=== PATIENT | male | born 1970 | race Caucasian/White ===

== ENCOUNTER → 2019-09-19 09:47 | Outpatient (CLI) | payer BC, SELFPAY ==
[2019-09-19 10:32] LABS: Cholesterol 149 mg/dL (140-199); Glucose 96 mg/dL (70-100); HDL Cholesterol 67 mg/dL (40-60); LDL Cholesterol Calculated 74 mg/dL (<100); Triglycerides 40 mg/dL (35-150)
== END ==
PROVIDERS: PCP Family Medicine; Referring Provider Family Medicine; Visit Provider Family Medicine
DX: Z13.220 Encounter for screening for lipoid disorders (principal); Z13.1 Encounter for screening for diabetes mellitus
CPT/HCPCS: 36415; 80061; 82947

== ENCOUNTER → 2020-06-16 13:11 | Outpatient (CLI) | payer BC, SELFPAY ==
[2020-06-16] MEDS: COVID-19 VACC #1, MRNA(MOD) 100 MCG/0.5 ML VIAL IM (13:19)
== END ==
PROVIDERS: PCP Family Medicine; Visit Provider Internal Medicine
DX: Z23 Encounter for immunization (principal)
CPT/HCPCS: 0011A; 91301

== ENCOUNTER → 2020-07-15 09:41 | Outpatient (CLI) | payer BC, SELFPAY ==
[2020-07-15] MEDS: COVID-19 VACC #2, MRNA(MOD) 100 MCG/0.5 ML VIAL IM (09:46)
== END ==
PROVIDERS: PCP Family Medicine; Visit Provider Internal Medicine
DX: Z23 Encounter for immunization (principal)
CPT/HCPCS: 0012A; 91301

== ENCOUNTER 2023-07-18 09:50 | Day surgery (SDC) | payer BC, SELFPAY ==
[2023-07-18 10:07] VITALS: BP 116/75; PULSE 63; RESP 16; TEMP 37.2; O2SAT 99
[2023-07-18] MEDS: LACTATED RINGERS 1,000 ML 42 ML IV (10:19)
--- NOTE | 2023-07-18 10:22 | PM.HP.1 ---
History of Present Illness History of Present Illness Date Patient Seen: 07/18/23 Time Patient Seen: 10:22 Chief complaint: Screening Colonoscopy Narrative: 52-year-old man here for 1st time screening colonoscopy. Grandmother had colon cancer no first-degree relatives. No abdominal concerns today. [facility] Medical History No significant medical problems Family History (Updated 02/13/23 @ 14:59 by Maya Bell MD) Father Cancer Social History marital status: number of children: 2 household members: family lives independently: Yes caregiver/support person: No housing: house Smoking Status: Never smoker second hand exposure: No alcohol intake: current substance use type: does not use Meds Home Medications and Allergies Home Medications Medication Instructions Recorded Confirmed Type halobetasol propionate 0.05 % 1 applic topical BID #50 grams 02/14/23 Rx topical ointment Allergies Allergy/AdvReac Type Severity Reaction Status Date / Time No Known Drug Allergies Allergy Verified 07/18/23 10:04 Exam Vital Signs (past 8 hours): - 07/18/23 10:07 Temperature 98.9 F Pulse Rate 63 Respiratory Rate 16 Blood Pressure 116/75 Pulse Oximetry 99 Oxygen Delivery Method Room Air Oxygen Flow Rate 0 Oxygen Delivery Method Room Air Oxygen Flow Rate 0 Narrative Exam Narrative: General adult man alert oriented no acute distress Chest nonlabored respiration Extremities warm well perfused Assessment & Plan Assessment & Plan narrative: The patient requires colorectal screening and colonoscopy is recommended. Technical details were discussed. Risks, benefits, alternatives explained. Risks including but not limited to myocardial infarction, aspiration, bleeding, pain, missed lesion, incomplete examination, need for further radiographic studies, intestinal injury, and need for major abdominal surgery were discussed. All questions were answered to their satisfaction, and they are in agreement with this plan.
[2023-07-18 10:50] VITALS: BP 119/67; PULSE 73; RESP 13; TEMP 36.3; O2SAT 99
[2023-07-18 10:55] VITALS: BP 107/68; PULSE 73; RESP 12; O2SAT 97
--- NOTE | 2023-07-18 10:55 | P.OP.COLON_ITS ---
Operative Date/Time/Diagnoses Date of procedure: 07/18/23 Time of procedure: 10:56 Pre-op diagnosis: Colorectal screening Procedure & Clinicians Study performed: Screening colonoscopy Same procedure as scheduled: Yes Indications: Colorectal screening Surgeon: Gabriel Weller Procedure Notes Procedure in detail: The history and physical was performed/updated and the patient is ASA class is 2. The procedure was discussed in detail with the patient. Potential risks co mplications including infection, bleeding, missed diagnosis, perforation, need for surgery, and were explained. Their questions were answered and informed consent was obtained. Patient was brought to the procedure room and placed standard monitoring equipment. The patient's vital signs were monitored continuously throughout the entire procedure. Prior to starting time-out was performed. The patient was placed in the left lateral recumbent position. Procedural sedation was administered by anesthesia. Examination began with a thorough inspection of the perianal area there was no evidence of fissures, fistulae, external hemorrhoids or cutaneous malignancy. The colonoscopy scope was then placed into the anal canal and was advanced to the cecum, which was identified by the ileocecal valve, the appendiceal orifice and the confluence of the taenia. The scope was then slowly withdrawn examining colon thoroughly in all directions, irrigating it of any residual stool. The scope was retroflexed within the rectum The patient tolerated the procedure well. They will be discharged once criteria are met. The prep was of good/excellent quality. The withdrawl time was 6 minutes. FINDINGS * Unremarkable colonoscopy. No masses polyps or inflammation. Normal healthy colonic mucosa Specimen(s): none sent Impression: Normal colonoscopy Post-procedure Recommendations: Colonoscopy in 10 years Disposition: same day surgery
[2023-07-18 11:09] VITALS: BP 109/76; PULSE 62; RESP 14; TEMP 36.6; O2SAT 98
== END 2023-07-18 11:22 | disposition home or self-care (01) ==
PROVIDERS: PCP Family Medicine; Referring Provider Surgery; Visit Provider Surgery
PROC: 0DJD8ZZ Inspection of Lower Intestinal Tract, Via Natural or Artificial Opening Endoscopic (ICD-10-PCS; CPT 45378; principal; 2023-07-18 10:45)
DX: Z12.11 Encounter for screening for malignant neoplasm of colon (principal)
CPT/HCPCS: 45378; J2704